=== PATIENT | female | born 1950 | race African-American/Black ===

== ENCOUNTER → 2017-09-14 | Outpatient (RCR) | payer OTHER | END | disposition home or self-care (01) | LOC: PTY 08-18 09:45 | DX: M17.12 Unilateral primary osteoarthritis, left knee (principal); I10 Essential (primary) hypertension | CPT/HCPCS: 97110; 97140; 97161; G0283 ==

== ENCOUNTER 2017-09-28 10:15 | Outpatient (RCR) | payer OTHER | END 2017-10-15 | disposition home or self-care (01) | LOC: PTY 10:15 | DX: M17.12 Unilateral primary osteoarthritis, left knee (principal); I10 Essential (primary) hypertension | CPT/HCPCS: 97110; 97140; G0283 ==